=== PATIENT | female | born 1955 | race Caucasian/White ===

== ENCOUNTER 2021-02-25 14:00 | Emergency (ER) | payer OTHER | END 2021-02-25 15:41 | disposition home or self-care (01) | LOC: ER1 14:00 | DX: S52.502A Unspecified fracture of the lower end of left radius, initial encounter for closed fracture (principal); W01.0XXA Fall on same level from slipping, tripping and stumbling without subsequent striking against object, initial encounter; Y92.009 Unspecified place in unspecified non-institutional (private) residence as the place of occurrence of the external cause | CPT/HCPCS: 29125; 73110; 99283 ==